=== PATIENT | female | born 1955 | race Caucasian/White ===

== ENCOUNTER 2020-09-24 19:23 | Emergency (ER) | payer MEDICARE ==
[~2020-09-24] VITALS: Ht 170.2 cm; Wt 127.0 kg
[2020-09-24] MEDS ORDERED: LEVOTHYROXINE125 MC1 PO (19:35)
[2020-09-24] MEDS ORDERED: NORVASC5 MG PO (19:35)
[2020-09-24] MEDS ORDERED: MYCOPHENOLATE500 MG PO (19:36)
[2020-09-24] MEDS ORDERED: ASTAGRAF XL1 MG PO (19:36)
[2020-09-24] MEDS ORDERED: PEPCID20 MG PO (19:36)
[2020-09-24] MEDS ORDERED: NIFEDIPINE20 MG PO (19:36)
[2020-09-24] MEDS ORDERED: RAYOS5 MG PO (19:36)
[2020-09-24 20:13] LABS: ABSOLUTE BASOPHILS 0.1 thou/uL (0.0-0.2); ABSOLUTE EOSINOPHILS 0.1 thou/uL (0.0-0.7); ABSOLUTE LYMPHOCYTES 1.3 thou/uL (0.8-5.3); ABSOLUTE MONOCYTES 0.8 thou/uL (0.0-1.2); ABSOLUTE NEUTROPHILS 12.5 thou/uL (1.6-8.1); BASOPHILS 0.6 %; EOSINOPHILS 0.4 %; HEMATOCRIT 36.6 % (37.0-47.0); HEMOGLOBIN 12.1 gm/dL (12.0-15.0); LYMPHOCYTES 9.1 %; MCH 28.7 pg (26.0-34.0); MCV 87.2 fL (80.0-100.0); MONOCYTES 5.3 %; MPV 7.8 fl. (7.2-11.1); NUCLEATED RBCS 0 /100WBC; PLATELET COUNT* 434 thou/uL (150-400); POLYS 84.6 %; RDW-CV 15.4 % (10.5-14.5); WBC 14.7 thou/uL (4.0-11.0)
[2020-09-24 20:15] LABS: CALCIUM 8.7 mg/dL (8.5-10.1); CREATININE 1.4 mg/dL (0.6-1.3); POTASSIUM 3.9 mmol/L (3.5-5.1)
[2020-09-24 20:20] LABS: ALBUMIN 3.2 g/dL (3.4-5.0); TOTAL BILIRUBIN 0.4 mg/dL (<0.1-1.0); TOTAL PROTEIN 7.9 g/dL (6.4-8.2)
[2020-09-24] MEDS ORDERED: NORCO5 PO ×2 (20:53→21:02)
[2020-09-24] MEDS ORDERED: DOXYCYCLINE 10100 MG PO (20:53)
[2020-09-24 21:12] VITALS: BP 151/84
== END 2020-09-24 21:14 | disposition home or self-care (01) ==
LOC: M.ERS 19:23
PROVIDERS: Physician Assistant
DX: I82.611 Acute embolism and thrombosis of superficial veins of right upper extremity (principal); L03.113 Cellulitis of right upper limb; I10 Essential (primary) hypertension; K21.9 Gastro-esophageal reflux disease without esophagitis; Z85.828 Personal history of other malignant neoplasm of skin